=== PATIENT | male | born 1985 | race African-American/Black ===

== ENCOUNTER 2016-11-20 18:38 | Emergency (ER) | payer OTHER ==
[~2016-11-20] VITALS: Ht 172.7 cm; Wt 105.0 kg
[~2016-11-20 18:38] MED LIST: OLAN10 PO
[2016-11-20 18:40] VITALS: BP 151/85; PULSE 83; RESP 13; TEMP 98.6; O2SAT 98
--- NOTE | 2016-11-20 18:58 | PD ---
HPI Chief Complaint: Complaint Time Seen by Provider: 18:53 Travel History International Travel<30 days: No Contact w/Intl Traveler<30days: No Traveled to known affect area: No History of Present Illness HPI 31-year-old male with a history of asthma presents to the emergency department for evaluation of urethral discharge and burning with urination for one week. The patient states that he was recently screened for HIV, gonorrhea and chlamydia about 3 weeks ago and was negative. States that however his symptoms began after his sexual partner returned from out of town and they had intercourse. He is concerned he may have either gonorrhea or chlamydia. He denies any fever, chills, nausea, vomiting, abdominal pain, testicular pain. No other complaints. PFSH Past Medical History Asthma: Yes Genitourinary: Yes (CLYMIDIA) Tetanus Vaccination: Unknown Influenza Vaccination: No ?: Not Past Surgical History Surgical History: No Previous Surgery Social History Alcohol Use: Yes (SOCIALLY) Tobacco Use: No Substance Use: No Allergies-Medications (Allergen,Severity, Reaction): Coded Allergies: No Known Allergies (Verified , 11/20/16) Reported Meds & Prescriptions Reported Meds & Active Scripts Active Keflex (Cephalexin) 500 Mg Cap 500 Mg PO Q12H 7 Days Review of Systems Except as stated in HPI: all other systems reviewed are Neg Physical Exam Narrative GENERAL: Well-nourished and well-developed pleasant patient in no acute distress who is nontoxic appearing. SKIN: Warm and dry. HEAD: Normocephalic and atraumatic. EYES: No injection, drainage, or hyphema noted. PERRLA. EOMI. ENT: No nasal drainage noted. Oropharynx is clear. NECK: Supple and the trachea is midline. CARDIOVASCULAR: Regular rate and rhythm. RESPIRATORY: Breath sounds are equal bilaterally with no accessory muscle use, wheezing, rhonchi, or crackles. GASTROINTESTINAL: Abdomen is soft, non-tender, and nondistended. GENITOURINARY: Circumcised. Testes descended bilaterally without evidence of rotation. No lesions or erythema. White urethral discharge noted. Examination performed in the presence of Jovana MCKEON. MUSCULOSKELETAL: No obvious deformities, swelling, cyanosis, or ecchymosis is present throughout the upper and lower extremities. NEUROLOGICAL: Awake, alert, and oriented. Normal speech and gait. Cranial nerves are grossly intact. Data Data Last Documented VS Vital Signs Date Time Temp Pulse Resp B/P Pulse Ox O2 Delivery O2 Flow Rate FiO2 11/20/16 18:40 98.6 83 13 151/85 98 Orders Urinalysis - C+S If Indicated (11/20/16 18:52) Gc And Chlamydia Pcr (11/20/16 18:52) Azithromycin (Zithromax) (11/20/16 19:00) Ceftriaxone Inj (Rocephin Inj) (11/20/16 19:00) Lidocaine 1% Inj (50 Ml) (Xylocaine 1% I (11/20/16 19:00) Urine Culture (11/20/16 19:10) Labs Laboratory Tests Test 11/20/16 19:10 Urine Color YELLOW Urine Turbidity HAZY Urine pH 6.5 Urine Specific Floyd 1.022 Urine Protein TRACE mg/dL Urine Glucose (UA) NEG mg/dL Urine Ketones NEG mg/dL Urine Occult Blood SMALL Urine Nitrite NEG Urine Bilirubin NEG Urine Urobilinogen LESS THAN 2.0 MG/DL Urine Leukocyte Esterase LARGE Urine RBC 7 /hpf Urine WBC /hpf Urine Mucus FEW /lpf Microscopic Urinalysis Comment CULTURE INDICATED MDM Medical Decision Making Medical Screen Exam Complete: Yes Emergency Medical Condition: Yes Differential Diagnosis STI versus urethritis versus UTI Narrative Course 31-year-old male presents to the emergency department for evaluation of urethral discharge and burning with urination. Patient is afebrile, vital signs are stable. History and physical examination suspicious for STI. Urinalysis, gonorrhea and Chlamydia has been ordered and is pending. Patient is administered Rocephin 250 mg IM and Zithromax 1 g orally to treat for gonorrhea and chlamydia. Urinalysis shows small occult blood, large leukocyte esterase, 7 red blood cells , innumerable white blood cells, few mucus. Gonorrhea and Chlamydia is pending. Is the patient has innumerable white blood cells will treat him with Keflex for possible urinary tract infection although I do think that his symptoms are secondary to STI. Patient is instructed to follow-up with the health department and notify all partners. Patient verbalizes understanding and agreement with treatment plan. Diagnosis Primary Impression: Urethritis Referrals: [facility] Dept. Patient Instructions: General Instructions, Sexually Transmitted Diseases (ED) Additional Instructions: Do not have intercourse for 1 week. Make sure your partner is tested and treated. Follow-up with your Primary Care Physician or the Health Dept. Return to the ED for any acute worsening of symptoms. Med/Other Pt SpecificInfo: No Change to Meds Scripts Cephalexin (Keflex)500 Mg Dup372 Mg PO Q12H 7 Days Ref 0 Prov:Dionna Montesinos MD 11/20/16 Disposition: 01 DISCHARGE HOME Condition: Stable Yaquelin Millard November 20, 2016 18:57
[2016-11-20] MEDS ORDERED: LIDOCAINE HCL 1% 50 ML VIAL XX ONE (19:00)
[2016-11-20] MEDS ORDERED: AZITHROMYCIN 250 MG TAB PO ONE (19:00)
[2016-11-20] MEDS ORDERED: cefTRIAXone 250 MG VIAL IM ONE (19:00)
[2016-11-20 19:42] LABS: BLOOD, URINE SMALL (NEG); COMMENT (UR) CULTURE INDICATED; CULTURE IF INDICATED CULTURE INDICATED; GLUCOSE,URINE NEG (NEG); KETONE, URINE NEG (NEG); MUCUS URINE FEW /lpf (OCC); NITRITE,URINE NEG (NEG); PH, URINE 6.5 (5.0-8.5); URINE COLOR YELLOW (YELLW/STRAW)
[2016-11-20] MEDS ORDERED: CEPH-460 PO (19:51)
[2016-11-20 20:12] VITALS: BP 139/83
[2016-11-20 21:44] LABS: CHLAMYDIA PCR NOT DETECTED (NOT DETECT); NEISSERIA PCR DETECTED (NOT DETECT)
== END 2016-11-20 20:15 | disposition home or self-care (01) ==
LOC: NEPD 18:38
DX: N34.2 Other urethritis (principal); R36.9 Urethral discharge, unspecified; J45.909 Unspecified asthma, uncomplicated
CPT/HCPCS: 81001; 87086; 87491; 87591; 96372; 99284; J0696